=== PATIENT | male | born 1995 | race African-American/Black ===

== ENCOUNTER 2025-01-12 09:12 | Emergency (ER) | payer MEDICAID ==
[~2025-01-12] VITALS: Ht 180.3 cm; Wt 120.0 kg
[2025-01-12 09:13] VITALS: O2SAT 100
[2025-01-12 10:24] LABS: BASOPHILS % 0.4 % (0.0-2.0); EOSINOPHILS % 0.8 % (0.0-5.0); HEMATOCRIT. 49.1 % (42.0-52.0); HEMOGLOBIN. 15.9 g/dL (14.0-18.0); LYMPHOCYTES % 14.5 % (20.0-50.0); MEAN CORPUSCULAR HEMOGLOBIN 28.4 pg (28.0-32.0); MEAN CORPUSCULAR HGB CONC 32.5 g/dL (31.0-37.0); MEAN CORPUSCULAR VOLUME 87.5 fL (80.0-94.0); MEAN PLATELET VOLUME 9.8 fl (7.4-10.4); MONOCYTES % 6.1 % (2.0-8.0); NEUTROPHILS % 78.2 % (40.0-76.0); PLATELET 256 x1000/uL (130-400); RED BLOOD CELL COUNT 5.61 mill/uL (4.7-6.1); WHITE BLOOD COUNT 12.1 x1000/uL (4.5-11.0)
[2025-01-12 10:30] LABS: CHLORIDE 101 mEq/L (98-107); POTASSIUM 4.8 mEq/L (3.5-5.1); SODIUM 135 mEq/L (136-145)
[2025-01-12 10:31] LABS: CALCIUM 9.6 mg/dL (8.7-10.4); CARBON DIOXIDE 26 mEq/L (21-32)
[2025-01-12] MEDS: LEVETIRACETAM 1000MG PREMIX 100 ML IV ONE (10:33)
[2025-01-12] MEDS: SODIUM CHLORIDE 0.9% 1,000 ML IV ONE (10:33)
[2025-01-12 10:36] LABS: CREATININE 1.3 mg/dL (0.6-1.3); GLUCOSE 274 mg/dL (70-105); UREA NITROGEN BLOOD 12 mg/dL (9-23)
[2025-01-12] MEDS: LORAZEPAM 2MG/ML INJ IV ONE (10:39)
[2025-01-12 10:49] LABS: ETHANOL BLOOD < 10 mg/dL (<10)
[2025-01-12 12:39] LABS: INR 1.1; PROTHROMBIN TIME 11.3 sec (9.6-11.0)
[2025-01-12 15:31] VITALS: BP 137/88; PULSE 89; RESP 14; TEMP 37; O2SAT 100
== END 2025-01-12 15:35 | disposition home or self-care (01) ==
LOC: ER 09:12
DX: R56.9 Unspecified convulsions (principal); M25.552 Pain in left hip; M25.551 Pain in right hip
CPT/HCPCS: 80048; 80320; 85025; 85610; 36415; 71045; 72170; 70450; 96374; 96375; 99285; J1953; J2060; J7030; Z7610 ×2; A4606; G0480